=== PATIENT | female | born 1980 | race African-American/Black ===

== ENCOUNTER 2017-06-01 09:45 | Emergency (ER) | payer OTHER ==
[~2017-06-01] VITALS: Ht 160 cm; Wt 106.0 kg
[2017-06-01 10:19] VITALS: BP 146/78
[2017-06-01] MEDS ORDERED: ACETAMINOPHEN 325MG TABLET ONE (10:36)
[2017-06-01 11:51] LABS: CLARITY URINE CLOUDY (CLEAR); COLOR URINE YELLOW (YELLOW); KETONES URINE TRACE (NEGATIVE); LEUKOCYTE ESTERASE URINE TRACE (NEGATIVE); NITRITE URINE NEGATIVE (NEGATIVE); OCCULT BLOOD URINE 3+ (NEGATIVE); PROTEIN URINE TRACE (NEGATIVE); SPECIFIC GRAVITY URINE 1.027 (1.005-1.030); UROBILINOGEN URINE 0.2 E.U./dL (0.2-1.0)
== END 2017-06-01 13:35 | disposition home or self-care (01) ==
LOC: ER 11:54
DX: J10.1 Influenza due to other identified influenza virus with other respiratory manifestations (principal)
CPT/HCPCS: 71045; 81001; 81025; 87804; 99285

== ENCOUNTER 2020-01-21 03:21 | Emergency (ER) | payer MEDICAID, OTHER ==
[~2020-01-21] VITALS: Ht 157.5 cm; Wt 114.0 kg
[2020-01-21] MEDS ORDERED: CLONIDINE 0.1MG TABLET PO ONE (04:00)
[2020-01-21 04:43] LABS: CLARITY URINE TURBID (CLEAR); COLOR URINE RED (YELLOW); KETONES URINE TRACE (NEGATIVE); LEUKOCYTE ESTERASE URINE 1+ (NEGATIVE); NITRITE URINE NEGATIVE (NEGATIVE); OCCULT BLOOD URINE 3+ (NEGATIVE); PH URINE 5.5 (4.5-8.0); PROTEIN URINE 2+ (NEGATIVE); SPECIFIC GRAVITY URINE 1.023 (1.005-1.030)
[2020-01-21 05:23] LABS: BASOPHILS % 0.3 % (0.0-2.0); EOSINOPHILS % 1.2 % (0.0-5.0); HEMATOCRIT. 33.3 % (36.0-48.0); HEMOGLOBIN. 11.1 g/dL (12.0-16.0); LYMPHOCYTES % 30.6 % (20.0-50.0); MEAN PLATELET VOLUME 7.6 fl (7.4-10.4); MONOCYTES % 8.6 % (2.0-8.0); NEUTROPHILS % 59.3 % (40.0-76.0); PLATELET 332 x1000/uL (130-400); RED BLOOD CELL COUNT 3.97 mill/uL (4.2-5.4); RED CELL DISTRIBUTION WIDTH 15.2 % (11.6-14.6)
[2020-01-21 05:27] LABS: CHLORIDE 108 mEq/L (98-107)
[2020-01-21 05:39] LABS: HCG SCREEN NEGATIVE
[2020-01-21 05:59] VITALS: BP 140/94
== END 2020-01-21 06:44 | disposition home or self-care (01) ==
LOC: ER 03:27
DX: N93.9 Abnormal uterine and vaginal bleeding, unspecified (principal); I10 Essential (primary) hypertension; D25.9 Leiomyoma of uterus, unspecified
CPT/HCPCS: 36415; 76830; 76856; 80053; 81003; 81025; 84703; 85025; 86850; 86900; 93005; 99285

== ENCOUNTER 2024-01-12 09:15 | Emergency (ER) | payer MEDICAID ==
[~2024-01-12] VITALS: Ht 167.6 cm; Wt 95.0 kg
[2024-01-12 09:24] VITALS: O2SAT 99
[2024-01-12] MEDS ORDERED: BENAZEPRIL 10MG TABLET PO ONE (10:00)
[2024-01-12] MEDS: LISINOPRIL 10MG TABLET PO NR (10:15)
[2024-01-12 12:36] VITALS: BP 160/70; PULSE 78; RESP 15; TEMP 98.8
== END 2024-01-12 12:39 | disposition home or self-care (01) ==
LOC: ER 09:15
DX: U07.1 COVID-19 (principal); I10 Essential (primary) hypertension; Z98.890 Other specified postprocedural states; Z86.59 Personal history of other mental and behavioral disorders
CPT/HCPCS: 99283